=== PATIENT | male | born 1985 | race Caucasian/White ===

== ENCOUNTER 2022-03-20 20:01 | Emergency (ER) | payer OTHER ==
--- NOTE | 2022-03-20 20:18 | ED Physician Documentation ---
PD HPI CHEST PAIN - Stated complaint Stated Complaint: CP - Chief complaint Chief Complaint: Cardiac - History obtained from History obtained from: Patient - History of Present Illness Timing - onset: Yesterday Timing - details: Gradual onset Pain level max: 6 (with deep breath in) Pain level now: 3 Quality: Sharp, Stabbing Location: Left chest Radiation: Other (left upper back) Improved by: Rest Worsened by: Inspiration Associated symptoms: No: Shortness of air, Palpitations, Cough Similar symptoms before: Diagnosis (some similarities to PE (2013)) Recently seen: Not recently seen - Additional information Additional information: c/o sharp, stabbing left chest pain that radiates to left upper back. Onset yesterday without specific inciting event, distinct pleuritic component. Pain has steadily worsened over past 2 hours. He feels there are some similarities to PE he had 2012. He is COVID vaccinated without booster. Denies cough, denies fever Review of Systems Constitutional: denies: Fever, Chills, Sweats Cardiac: reports: Chest pain / pressure. denies: Palpitations, Pedal edema, Calf pain Respiratory: denies: Dyspnea, Cough, Hemoptysis, Wheezing GI: reports: Reviewed and negative Musculoskeletal: denies: Extremity swelling PD PAST MEDICAL HISTORY - Past Medical History Past Medical History: Yes Cardiovascular: Pulmonary embolism - Past Surgical History General: Appendectomy - Allergies Allergies/Adverse Reactions: Allergies Allergy/AdvReac Type Severity Reaction Status Date / Time penicillin G Allergy Unknown Verified 03/20/22 20:14 - Living Situation Living Arrangement: reports: At home PD ED PE NORMAL - Vitals Vital signs reviewed: Yes - General General: Alert and oriented X 3, No acute distress, Well developed/nourished - Cardiac Cardiac: RRR, No murmur, No gallop, No rub - Respiratory Respiratory: No respiratory distress, Clear bilaterally - Abdomen Abdomen: Soft, Non tender - Extremities Extremities: No edema Results - Vitals Vitals: Vital Signs - 24 hr 03/20/22 03/20/22 03/20/22 20:07 22:17 23:37 Temperature 36.2 C L 36.9 C Heart Rate 87 78 71 Respiratory 17 22 17 Rate Blood Pressure 132/87 H 123/81 H O2 Saturation 97 96 96 Oxygen O2 Source Room air - EKG (time done) No standard instances Rate: Rate (enter#) (94) Rhythm: NSR [place]: Normal Intervals: Normal [place] QRS: Normal Ischemia: Normal ST segments - Labs Labs: Laboratory Tests 03/20/22 03/20/22 03/20/22 20:25 20:25 20:25 WBC 6.2 RBC 4.44 L Hgb 14.7 Hct 41.7 L MCV 93.9 MCH 33.1 H MCHC 35.3 RDW 12.0 Plt Count 247 MPV 11.1 Neut # (Auto) 4.2 Lymph # (Auto) 1.2 L [place] # (Auto) 0.6 Eos # (Auto) 0.1 Baso # (Auto) 0.0 Absolute Nucleated RBC 0.00 Nucleated RBC % 0.0 PT 10.8 INR 1.0 APTT 26.8 Sodium 137 Potassium 3.9 Chloride 101 Carbon Dioxide 25 Anion Gap 11.0 BUN 15 Creatinine 1.1 Estimated GFR (MDRD) 75 L Glucose 117 H Calcium 9.0 Total Bilirubin 0.6 AST 29 ALT 41 Alkaline Phosphatase 89 Troponin I High Sens Total Protein 7.2 Albumin 4.2 Globulin 3.0 Albumin/Globulin Ratio 1.4 Lipase 40 03/20/22 20:25 WBC RBC Hgb Hct MCV MCH MCHC RDW Plt Count MPV Neut # (Auto) Lymph # (Auto) [place] # (Auto) Eos # (Auto) Baso # (Auto) Absolute Nucleated RBC Nucleated RBC % PT INR APTT Sodium Potassium Chloride Carbon Dioxide Anion Gap BUN Creatinine Estimated GFR (MDRD) Glucose Calcium Total Bilirubin AST ALT Alkaline Phosphatase Troponin I High Sens 2.8 Total Protein Albumin Globulin Albumin/Globulin Ratio Lipase - Rads (name of study) CT chest angio (PE study) Radiology: Prelim report reviewed, See rad report PD MEDICAL DECISION MAKING - ED course Complexity details: reviewed results, re-evaluated patient, considered differential, d/w patient ED course: presents with left-sided pleuritic chest pain. Unremarkable EKG. Of greatest concern is patient has h/o PE and thus included in initial workup is CT chest angio (PE study). No concerning nor diagnostic results on tonight's tests. blood tests include negative hs-cTn. His CT angio chest does not show any evidence of pulmonary emboli. Incidental note of 3mm right lower lobe pulmonary nodule is made as well as right lung base atelectasis. Results d/w patient, follow up recommended for both reevaluation of his symptoms as well as the pulmonary nodule, and return precautions discussed Departure - Departure Disposition: 01 Home, Self Care Clinical Impression: Chest pain Condition: Good Instructions: ED Chest Pain Atypical Unkn Cause, ED Chest Pain Pleurisy, ED Nodule Solitary Pulmonary Comments: The cause of your chest discomfort is not clear at this time. Your test results are all without concerning findings (EKG, blood tests, CT chest with contrast). An incidental note is made of a very small right-sided pulmonary nodule; you should follow up with your primary care provider regarding the chest pain as well as to discuss possible follow-up testing on the pulmonary nodule Discharge Date/Time: 03/20/22 23:38
[2022-03-20 20:37] LABS: BASOPHILS % (AUTO) 0.5 %; EOSINOPHILS # (AUTO) 0.1 10^3/uL (0.0-0.7); EOSINOPHILS % (AUTO) 2.3 %; HCT - HEMATOCRIT 41.7 % (42.0-52.0); HGB - HEMOGLOBIN 14.7 g/dL (14.0-18.0); LYMPHOCYTES # (AUTO) 1.2 10^3/uL (1.5-3.5); LYMPHOCYTES % (AUTO) 19.6 %; MEAN CORPUSCULAR HEMOGLOBIN 33.1 pg (27.0-31.0); MEAN CORPUSCULAR HGB CONC 35.3 g/dL (32.0-36.0); MEAN CORPUSCULAR VOLUME 93.9 fL (80.0-94.0); MEAN PLATELET VOLUME 11.1 fL (7.4-11.4); MONOCYTES # (AUTO) 0.6 10^3/uL (0.0-1.0); MONOCYTES % (AUTO) 9.6 %; NEUTROPHILS # (AUTO) 4.2 10^3/uL (1.5-6.6); NEUTROPHILS % (AUTO) 67.8 %; PLT - PLATELET COUNT 247 10^3/uL (130-450); RED BLOOD COUNT 4.44 10^6/uL (4.70-6.10); WHITE BLOOD COUNT 6.2 x10^3/uL (4.8-10.8)
[2022-03-20] MEDS ORDERED: IOVERSOL 320 100 ML VIAL IVP ONE ×2 (20:41→21:30)
[2022-03-20 20:47] LABS: PT - PROTHROMBIN TIME 10.8 secs (9.9-12.6)
[2022-03-20 20:54] LABS: PARTIAL THROMBOPLASTIN TIME 26.8 secs (24.9-33.3)
[2022-03-20 20:56] LABS: ALBUMIN 4.2 g/dL (3.2-5.5); ALBUMIN/GLOBULIN RATIO 1.4 (1.0-2.2); BILIRUBIN,TOTAL 0.6 mg/dL (0.2-1.0); CREATININE 1.1 mg/dL (0.6-1.2); POTASSIUM 3.9 mmol/L (3.5-5.0); TOTAL PROTEIN 7.2 g/dL (6.7-8.2)
--- NOTE | 2022-03-20 21:40 | CT Report ---
PROCEDURE: ANGIO CHEST W/WO INDICATIONS: chest pain, h/o PE CONTRAST: IV CONTRAST: Optiray 320 ml: 80 PO CONTRAST: *NO PO CONTRAST TECHNIQUE: After the administration of intravenous contrast, 2 mm axial images were acquired from the pulmonary apices to the posterior costophrenic angles during the arterial phase. In addition, 1 mm lung kernel and 5 mm soft tissue kernel reconstructions were performed. 3-dimensional coronal oblique maximum int ensity projection (MIP) reformats, 8 mm axial MIP, and 5 mm coronal and sagittal MPR reformats were t hen performed through the thorax. For radiation dose reduction, the following was used: automated exp osure control, adjustment of mA and/or kV according to patient size. COMPARISON: None. FINDINGS: Image quality: Excellent. Pulmonary arteries: Pulmonary arteries are normal in size, and demonstrate no intraluminal filling d efects to suggest central pulmonary embolism. Lungs and pleura: Right lower lobe superior segment pulmonary nodule measuring 0.3 cm, (). There is a small area of curvilinear basilar at the right lung base has the appearance of collecting system . No pleural effusions or pneumothorax. Central and peripheral airways are patent. Mediastinum: Heart size is normal, without pericardial effusion. No mediastinal or hilar adenopathy . Thoracic aorta is normal in caliber and enhancement. Esophagus is normal in caliber, without hiat al hernia. Bones and chest wall: No suspicious bony lesions. Ribs and thoracic spine appear intact throughout. No axillary or supraclavicular adenopathy. The thyroid is normal in size and there are no incident al findings. Abdomen: Visualized upper abdominal solid organs appear normal in the early arterial phase of enhanc ement. IMPRESSION: 1. No pulmonary embolism. 2. No significant acute airspace opacity. Reviewed by: Chava Fletcher MD on 03/20/2022 9:38 PM PDT Approved by: Chava Fletcher MD on 03/20/2022 9:38 PM PDT Station ID: [id number]
[2022-03-20] MEDS ORDERED: KETOROLAC 30 MG/ML VIAL IVP STA (23:26)
[2022-03-20 23:38] VITALS: BP 123/81
== END 2022-03-20 23:38 | disposition home or self-care (01) ==
LOC: ED 20:01
DX: R07.9 Chest pain, unspecified (principal)
CPT/HCPCS: 36415; 71275; 80053; 83690; 84484; 85025; 85610; 85730; 93005; 99284; Q9967

== ENCOUNTER 2022-04-22 10:12 | Outpatient (CLI) | payer OTHER ==
[2022-04-22] MEDS ORDERED: ALBUTEROL 1 PUFF INH STA (17:08)
== END 2022-04-22 10:13 | disposition home or self-care (01) ==
LOC: RT 10:12
PROVIDERS: ATTEND Internal Medicine Critical Care Medicine
DX: R06.00 Dyspnea, unspecified (principal)
CPT/HCPCS: 94060; 94727; 94729

== ENCOUNTER 2022-09-11 08:00 | Outpatient (CLI) | payer OTHER ==
[2022-09-11 18:16] LABS: BASOPHILS % (AUTO) 0.4 %; EOSINOPHILS # (AUTO) 0.1 10^3/uL (0.0-0.7); EOSINOPHILS % (AUTO) 1.9 %; HCT - HEMATOCRIT 45.1 % (42.0-52.0); HGB - HEMOGLOBIN 15.5 g/dL (14.0-18.0); LYMPHOCYTES # (AUTO) 1.7 10^3/uL (1.5-3.5); LYMPHOCYTES % (AUTO) 24.8 %; MEAN CORPUSCULAR HEMOGLOBIN 32.2 pg (27.0-31.0); MEAN CORPUSCULAR HGB CONC 34.4 g/dL (32.0-36.0); MEAN CORPUSCULAR VOLUME 93.8 fL (80.0-94.0); MEAN PLATELET VOLUME 11.8 fL (7.4-11.4); MONOCYTES # (AUTO) 0.5 10^3/uL (0.0-1.0); MONOCYTES % (AUTO) 7.7 %; NEUTROPHILS # (AUTO) 4.4 10^3/uL (1.5-6.6); NEUTROPHILS % (AUTO) 64.8 %; PLT - PLATELET COUNT 265 10^3/uL (130-450); RED BLOOD COUNT 4.81 10^6/uL (4.70-6.10); RED CELL DISTRIBUTION WIDTH 12.5 % (12.0-15.0); WHITE BLOOD COUNT 6.7 x10^3/uL (4.8-10.8)
[2022-09-11 18:22] LABS: ALBUMIN 4.5 g/dL (3.2-5.5); ALBUMIN/GLOBULIN RATIO 1.6 (1.0-2.2); ALKALINE PHOSPHATASE 75 IU/L (42-121); ALT ALANINE AMINOTRANSFERASE 64 IU/L (10-60); AST ASPARTATE AMINOTRANSFERASE 39 IU/L (10-42); BILIRUBIN,TOTAL 0.6 mg/dL (0.2-1.0); BUN - BLOOD UREA NITROGEN 9 mg/dL (6-20); CALCIUM 9.9 mg/dL (8.5-10.3); CARBON DIOXIDE - CO2 26 mmol/L (21-32); CHLORIDE 101 mmol/L (101-111); GFR - MDRD 84 (>89); GLUCOSE 90 mg/dL (70-100); LIPASE 53 U/L (22-51); POTASSIUM 4.4 mmol/L (3.5-5.0); SODIUM 138 mmol/L (135-145); TOTAL PROTEIN 7.4 g/dL (6.7-8.2)
[2022-09-11 18:25] LABS: CRP - C-REACTIVE PROTEIN < 1.0 mg/dL (0-1.0)
== END 2022-09-11 23:59 | disposition home or self-care (01) ==
LOC: LAB.N 08:00
PROVIDERS: ATTEND Registered Nurse
DX: R10.9 Unspecified abdominal pain (principal)
CPT/HCPCS: 36415; 80053; 83690; 85025; 86140

== ENCOUNTER 2022-09-14 07:57 | Emergency (ER) | payer OTHER ==
[2022-09-14] MEDS ORDERED: iohexoL-300 100 ML VIAL ONE (08:11)
--- NOTE | 2022-09-14 08:11 | ED Physician Documentation ---
PD HPI ABD PAIN - Stated complaint Stated Complaint: ABD PAIN - Chief complaint Chief Complaint: Abd Pain - History obtained from History obtained from: Patient - Additional information Additional information: 37-year-old gentleman with history of pulmonary embolism in 2012, Provoked by travel. No longer anticoagulated. Also history of appendectomy. Presents with 5 days of central nonradiating abdominal pain associated with nausea. Had diarrhea at the outset. Was seen in the clinic and labs were done with very mild elevation of lipase. Started on Cipro and Flagyl for presumed diverticulitis despite negative colonoscopy 2 years ago with the exception of 1 small polyp. Noted to be penicillin allergic. He was advised to seek emergency department evaluation if not improving which he is not. Declined pain medication on initial evaluation. He is significantly short of breath with this. Review of Systems Ten Systems: 10 systems reviewed and negative Constitutional: denies: Fever, Chills Cardiac: denies: Chest pain / pressure, Palpitations Respiratory: reports: Dyspnea. denies: Cough GI: reports: Abdominal Pain, Nausea, Diarrhea (gone) PD PAST MEDICAL HISTORY - Past Medical History Cardiovascular: Pulmonary embolism - Past Surgical History General: Appendectomy - Present Medications Home Medications: Ambulatory Orders Medication Instructions Recorded Confirmed Omeprazole 40 mg PO DAILY #30 cap 09/14/22 - Allergies Allergies/Adverse Reactions: Allergies Allergy/AdvReac Type Severity Reaction Status Date / Time penicillin G Allergy Unknown Verified 09/14/22 08:21 PD ED PE NORMAL - Vitals Vital signs reviewed: Yes - General General: Alert and oriented X 3, No acute distress - HEENT HEENT: PERRL, EOMI - Neck Neck: Supple, no meningeal sign, No bony TTP - Cardiac Cardiac: RRR, No murmur - Respiratory Respiratory: No respiratory distress, Clear bilaterally - Abdomen Abdomen: Normal bowel sounds, Soft, Other (Mild diffuse tenderness without focal findings or surgical signs.) - Back Back: No CVA TTP, No spinal TTP - Derm Derm: Normal color, Warm and dry - Extremities Extremities: No edema, No calf tenderness / cord - Neuro Neuro: Alert and oriented X 3, Normal speech Results - Vitals Vitals: Vital Signs - 24 hr 09/14/22 09/14/22 08:05 10:03 Temperature 36.4 C L Heart Rate 97 71 Respiratory 18 18 Rate Blood Pressure 140/105 H 127/71 O2 Saturation 98 96 Oxygen O2 Source Room air - Labs Labs: Laboratory Tests 09/14/22 09/14/22 08:15 08:15 WBC 5.2 RBC 4.52 L Hgb 14.3 Hct 41.6 L MCV 92.0 MCH 31.6 H MCHC 34.4 RDW 12.1 Plt Count 218 MPV 10.9 Neut # (Auto) 3.1 Lymph # (Auto) 1.5 [place] # (Auto) 0.4 Eos # (Auto) 0.1 Baso # (Auto) 0.0 Absolute Nucleated RBC 0.00 Nucleated RBC % 0.0 Sodium 136 Potassium 3.9 Chloride 103 Carbon Dioxide 27 Anion Gap 6.0 BUN 10 Creatinine 1.0 Estimated GFR (MDRD) 84 L Glucose 109 H Calcium 9.2 Total Bilirubin 0.8 AST 38 ALT 57 Alkaline Phosphatase 78 Total Protein 7.0 Albumin 4.2 Globulin 2.8 Albumin/Globulin Ratio 1.5 Lipase 34 - Rads (name of study) CT angiography of the chest and standard IV contrast abdomen pelvis Radiology: EMP read contemporaneously (Right basilar atelectasis, appendiceal stump noted.) PD MEDICAL DECISION MAKING - ED course ED course: 37-year-old gentleman has a history of some chronic unexplained abdominal issues status post colonoscopy negative except for a small polyp a couple of years ago now with more acute pain, already being treated for diverticulitis. Labs and CT unremarkable. Question peptic ulcer disease, will trial a PPI and have him follow-up for consideration of upper endoscopy. No evidence of diverticulitis so antibiotics will be stopped. Departure - Departure Disposition: 01 Home, Self Care Clinical Impression: Abdominal pain Instructions: ED Abdominal Pain Unkn Cause Male Prescriptions: Omeprazole 40 mg PO DAILY #30 cap Comments: As discussed, your labs and CAT scan are normal today. My suspicion by process of exclusion would be ulcer or gastritis. I am starting you on medication for this, but I do want you to follow-up with your primary care physician, next available appointment. Return for new or worsening symptoms. You can stop the antibiotics, ciprofloxacin and metronidazole prescribed by the walk-in clinic. I sent your prescription electronically to [facility] in [place]. Discharge Date/Time: 09/14/22 10:04
[2022-09-14 08:20] LABS: BASOPHILS % (AUTO) 0.4 %; EOSINOPHILS # (AUTO) 0.1 10^3/uL (0.0-0.7); EOSINOPHILS % (AUTO) 2.3 %; HCT - HEMATOCRIT 41.6 % (42.0-52.0); HGB - HEMOGLOBIN 14.3 g/dL (14.0-18.0); LYMPHOCYTES # (AUTO) 1.5 10^3/uL (1.5-3.5); MEAN CORPUSCULAR HEMOGLOBIN 31.6 pg (27.0-31.0); MEAN CORPUSCULAR HGB CONC 34.4 g/dL (32.0-36.0); MEAN PLATELET VOLUME 10.9 fL (7.4-11.4); MONOCYTES # (AUTO) 0.4 10^3/uL (0.0-1.0); MONOCYTES % (AUTO) 8.5 %; NEUTROPHILS # (AUTO) 3.1 10^3/uL (1.5-6.6); NEUTROPHILS % (AUTO) 59.6 %; PLT - PLATELET COUNT 218 10^3/uL (130-450); RED BLOOD COUNT 4.52 10^6/uL (4.70-6.10); RED CELL DISTRIBUTION WIDTH 12.1 % (12.0-15.0); WHITE BLOOD COUNT 5.2 x10^3/uL (4.8-10.8)
[2022-09-14 08:35] LABS: ALBUMIN 4.2 g/dL (3.2-5.5); ALBUMIN/GLOBULIN RATIO 1.5 (1.0-2.2); BILIRUBIN,TOTAL 0.8 mg/dL (0.2-1.0); CALCIUM 9.2 mg/dL (8.5-10.3); POTASSIUM 3.9 mmol/L (3.5-5.0)
[2022-09-14] MEDS ORDERED: KETOROLAC 15 MG/ML VIAL IVP STA (08:40)
[2022-09-14] MEDS ORDERED: iohexoL-300 100 ML VIAL IVP ONE (09:16)
--- NOTE | 2022-09-14 09:33 | CT Report ---
PROCEDURE: ANGIO CHEST W/WO INDICATIONS: ITS.REASON: dyspnea, pe protocol, hx of remote pe CONTRAST: IV CONTRAST: Optiray 320 ml: 100 PO CONTRAST: *NO PO CONTRAST TECHNIQUE: After the administration of intravenous contrast, 2 mm axial images were acquired from the pulmonary apices to the posterior costophrenic angles during the arterial phase. In addition, 1 mm lung kernel and 5 mm soft tissue kernel reconstructions were performed. 3-dimensional coronal oblique maximum int ensity projection (MIP) reformats, 8 mm axial MIP, and 5 mm coronal and sagittal MPR reformats were t hen performed through the thorax. For radiation dose reduction, the following was used: automated exp osure control, adjustment of mA and/or kV according to patient size. COMPARISON: 03/20/2022. Correlation is also made with the accompanying abdomen pelvis CT, 09/14/2022. FINDINGS: Image quality: Excellent. Pulmonary arteries: Pulmonary arteries are normal in size, and demonstrate no intraluminal filling d efects to suggest central pulmonary embolism. Lungs and pleura: Focal apparent atelectasis can be seen dependently at the right lung base. No pleur al effusions or pneumothorax. Central and peripheral airways are patent. Mediastinum: Heart size is normal, without pericardial effusion. No mediastinal or hilar adenopathy . Thoracic aorta is normal in caliber and enhancement. Esophagus is normal in caliber, without hiat al hernia. Bones and chest wall: No suspicious bony lesions. Ribs and thoracic spine appear intact throughout. Age-appropriate degenerative changes are seen. No axillary or supraclavicular adenopathy. The th yroid is normal in size and there are no incidental findings. Abdomen: Visualized upper abdominal solid organs appear normal in the early arterial phase of enhanc ement. IMPRESSION: No recurrent pulmonary embolism is seen. Mild dependent atelectasis is seen at the right lung base. Reviewed by: Ronal Pena MD on 09/14/2022 8:32 AM [facility] Approved by: Ronal Pena MD on 09/14/2022 8:32 AM [facility] Station ID: [id number]
--- NOTE | 2022-09-14 09:36 | CT Report ---
PROCEDURE: Abdomen/Pelvis W INDICATIONS: ITS.REASON: IV only, abd pain CONTRAST: IV CONTRAST: Optiray 320 ml: 100 PO CONTRAST: *NO PO CONTRAST TECHNIQUE: After the administration of IV contrast, 5 mm thick sections acquired from the diaphragms to the symp hysis. 5 mm thick coronal and sagittal reformats were acquired. For radiation dose reduction, the f ollowing was used: automated exposure control, adjustment of mA and/or kV according to patient size. COMPARISON: Correlation is made with the accompanying chest CT PE study, 09/14/2022. FINDINGS: Image quality: Excellent. ABDOMEN: Lung bases: Mild apparent atelectasis can be seen at the right lung base. Heart size is normal. Solid organs: Liver and spleen are normal in size and enhancement. Gallbladder wall does not appear thickened. Biliary system is non dilated. Pancreas enhances normally. No adrenal nodules. Kidn eys demonstrate normal size and enhancement, without hydronephrosis. Peritoneum and bowel: Bowel loops demonstrate normal wall thickness and caliber. No free fluid or a ir. An apparent appendix stump can be seen. No focal right lower quadrant inflammatory change can be seen. Nodes and vessels: No retroperitoneal or mesenteric adenopathy by size criteria. Aorta and inferior vena cava are normal in size. Miscellaneous: A mild fat-containing periumbilical hernia is seen. PELVIS: Genitourinary: Bladder wall thickness is normal. Miscellaneous: No inguinal hernias or adenopathy. Bones: No suspicious bony lesions. No vertebral body compression fractures. IMPRESSION: A cause of acute abdominal pain is not identified. No dilated loops of bowel are seen. Apparent prior appendectomy, with an apparent appendix stump seen. Please correlate with known patien t history. Incidental note is made of: Apparent atelectasis at the right lung base Fat-containing periumbilical hernia Reviewed by: Ronal Pena MD on 09/14/2022 8:35 AM [facility] Approved by: Ronal Pena MD on 09/14/2022 8:35 AM [facility] Station ID: [id number]
[2022-09-14 10:05] VITALS: BP 127/71
== END 2022-09-14 10:04 | disposition home or self-care (01) ==
LOC: ED 07:57
DX: R10.9 Unspecified abdominal pain (principal); R11.0 Nausea; Z86.718 Personal history of other venous thrombosis and embolism; Z86.711 Personal history of pulmonary embolism; Z88.0 Allergy status to penicillin
CPT/HCPCS: 36415; 71275; 74177; 80053; 83690; 85025; 96374; 99284; Q9967

== ENCOUNTER 2024-01-30 09:52 | Outpatient (CLI) | payer OTHER ==
[~2024-01-30 09:52] MED LIST: GADOTERATE MEGLUMINE 10 MMOL/20 ML VIAL ONE
[2024-01-30] MEDS: GADOTERATE MEGLUMINE 10 MMOL/20 ML VIAL IVP ONE (11:10)
--- NOTE | 2024-02-01 14:24 | MRI Report ---
PROCEDURE: MRI brain and internal auditory canals with and without contrast INDICATIONS: 38-year-old male with hearing loss TECHNIQUE: Multiplanar multi sequential MRI images of the brain and skull base with and without intr avenous contrast were obtained. Thin section T2 weighted images through both internal auditory canals were also obtained. COMPARISON: None. FINDINGS: Internal auditory canals: Cisternal and intracanalicular segments of both 7th and 8th cranial nerve c omplexes are unremarkable. No abnormal enhancement. Inner ear structures are appropriately formed. CSF spaces: Ventricles are normal in size and shape. No extra-axial fluid collections. Basal ciste rns are patent. Brain: No intracranial bleeds or mass effects. Pérez-white matter interface is intact. No abnormal intracranial enhancement. Diffusion weighted images demonstrate no acute infarct. Brainstem appears normal. Normal intravascular flow voids are present. Skull and face: Calvarial marrow signal is normal. Orbits appear normal. Sinuses: Sinuses and mastoids are clear. IMPRESSION: Unremarkable MRI of the brain and internal auditory canals without evidence of acoustic schwannoma Reviewed by: Tacho Murphy MD on 02/01/2024 1:23 PM [facility] Approved by: Tacho Murphy MD on 02/01/2024 1:23 PM [facility] Station ID: [id number]
== END 2024-01-30 09:53 | disposition home or self-care (01) ==
LOC: DI 09:52
PROVIDERS: ATTEND Preventive Medicine Aerospace Medicine
DX: R42 Dizziness and giddiness (principal)
CPT/HCPCS: 70553; A9575